=== PATIENT | female | born 1960 | race Caucasian/White ===

== ENCOUNTER 2016-09-23 17:46 | Emergency (ER) | payer SELFPAY ==
[2016-09-23 18:29] VITALS: TEMP 97.8; BMI 44.2
[2016-09-23] MEDS ORDERED: METHYLPREDNISOLONE 125 MG/2 ML VIAL IM ONE (18:41)
[2016-09-23] MEDS ORDERED: PENICILLIN IM ONE (18:41)
--- NOTE | 2016-09-23 18:43 | EDPRACDOC ---
- General Information Chief Complaint: Flu-Like Symptoms Stated Complaint: FLU SX Time Seen by Provider: 09/23/16 18:35 Information Source: Patient Mode Of Arrival: Car Home Medications: Home Medications Esomeprazole Mag Trihydrate [Nexium] 40 mg PO BID 11/03/12 Gabapentin [Neurontin] 300 mg PO TID 11/03/12 Diclofenac Sodium [Voltaren] 75 mg PO BID 11/23/13 Aspirin (Enteric Coated) [Halfprin] 81 mg PO DAILY 02/06/14 Vitamins, Multiple [Unicap] 1 cap PO DAILY 02/06/14 Citalopram (anti-depressant) [Celexa] 20 mg PO DAILY 02/28/14 Docusate Sodium [Stool Softener] 100 mg PO DAILY PRN 02/28/14 Metformin HCl 500 mg PO DAILY 06/17/15 Lisinopril [Prinivil] 10 mg PO BID 09/03/15 Metoprolol Tartrate [Lopressor] 50 mg PO BID 09/03/15 Amoxicillin Trihydrate [Amoxicillin] 500 mg PO TID #30 tab 08/21/16 Meclizine HCl [Antivert] 25 mg PO TID PRN #15 tab 08/21/16 Albuterol Sulfate [Proair Hfa] 2 puff INH QID #1 inhaler 09/23/16 Benzonatate [Tessalon Perle] 100 mg PO TID #21 capsule 09/23/16 Promethazine with Codeine [PHENERGAN with CODEINE] 5 ml PO Q4 #120 udc 09/23/16 Allergies/Adverse Reactions: Allergies Allergy/AdvReac Type Severity Reaction Status Date / Time morphine Allergy Rash-Locali Verified 09/23/16 18:27 zed - History of Present Illness Onset: 2 days HPI: PT PRESENTS WITH SORE THROAT, COUGH, FEVER AND GENERALIZED ACHES AND PAINS. STATES SHE IS A [employer] AT AN [employer]. DENIES NAUSEA OR VOMITING. Sore Throat Symptoms: Reports: Pain White Spots Location: Reports: Pharynx Recent: Reports: None Relevant History of: Reports: None Pain Severity: Reports: Moderate Urinary Output: Normal Oral Intake: Decreased Associated Signs and Symptoms: Reports: Fever ED Past Medical History - History Reviewed Yes Nurses notes reviewed and agree except as marked - Patient Medical History Cardiac History: Reports: Hypertension, Hypercholesterolemia Respiratory History: Reports: Bronchitis (Recently) GI/ History: Reports: Urinary Tract Infection, Kidney Stones (with stent placement in past), Gastroesophageal Reflux Musculoskeletal History: Reports: Arthritis Psychological History: Reports: Depression. Denies: Substance Use Disorder Systemic History: Reports: Anemia (after childbirth), Diabetes (NIDDM) Surgical History: Reports: Cholecystectomy. Denies: Hysterectomy - Family Medical History Reports: Hypertension, Diabetes, Cancer (Mama with lymphoma), Cardiac Disorders (Both parents had MIs) - Social Medical History Smoking Status: Former smoker Social History: Denies: Substance Use Disorder EDM Review of Systems - Review of Systems ROS Negative Except as Marked: Yes All systems reviewed and were negative except as marked - Physical Exam Constitutional: Alert Oriented to: Time, Person, Place Last recorded Vital Signs: Last Vital Signs Temp 97.8 F 09/23/16 18:27 Pulse 79 09/23/16 18:27 Resp 22 09/23/16 18:27 BP 133/74 09/23/16 18:27 Pulse Ox 94 09/23/16 18:27 Oxygen Pulse Oxygen Saturation 94 O2 Device Room Air Oxygen Flow Rate Fraction of Inspired Oxygen ( FIO2) - HEENT Head: Normal ( normocephalic) Eye Exam: Normal (PERRL, EOMI, Sclera white) Oropharynx: Red, Tonsillar Hypertrophy, White Plaques Tympanic Membrane: Bulging, Dull Nose: No Symptoms Reported (septum midline) Neck: Normal (FROM, trachea at midline) - Respiratory/Cardiovascular Respiratory: Normal - CTA (BBS clear to auscultation without adventitious sounds ) Cardiovascular: Normal (RRR without murmur, gallop or rub) - GI Auscultation: Normal (NABS) Palpation: Normal (Soft,No rebound or guarding, non distended) Tenderness: Non tender Benson's Sign: Negative Rectal Exam: Deferred - Musculoskeletal Back: Normal (Non-Tender) Extremities: Normal (Normal tone, Pulses 2+ No cyanosis or edema, FROM) - Integumentary Skin: Normal, Warm, Dry Lymphatics: Normal (no adenopathy) - Neurologic Memory Impaired: Normal Motor Function: Normal (Normal tone, Pulses 2+ No cyanosis or edema, FROM) Cranial Nerve: Normal (CN II-X11 intact sensation, strength 5/5) Cerebellar: Normal Mood Description: Normal Perception: Normal - Differential Diagnosis Pharyngitis Streptococcal Decision Time to Discharge: 18:43 - Departure Disposition: Home Condition: Stable Final Diagnosis: Pharyngitis Qualifiers: Pharyngitis/tonsillitis etiology: unspecified etiology Qualified Code(s): J02.9 - Acute pharyngitis, unspecified Instructions: Pharyngitis (ED) Education/Counseling Given To: Patient Education/Counseling Given Regarding: Diagnosis, Treatment, Prognosis, Follow Up Referrals: Martin Deleon PA [Primary Care Provider] - One Week Prescriptions: Albuterol Sulfate [Proair Hfa] 2 puff INH QID #1 inhaler Benzonatate [Tessalon Perle] 100 mg PO TID #21 capsule Promethazine with Codeine [PHENERGAN with CODEINE] 5 ml PO Q4 #120 udc Additional Instructions: FOLLOW UP WITH PCP NEXT WEEK. RETURN TO THE ED FOR WORSENING SYMPTOMS OR CONCERNS.
[2016-09-23 19:29] VITALS: BP 128/66; PULSE 72
== END 2016-09-23 19:23 | disposition home or self-care (01) ==
LOC: ED 17:46 → EDMC 19:23
DX: J02.9 Acute pharyngitis, unspecified (principal)
CPT/HCPCS: 96372; 99282; J0561; J2930